=== PATIENT | female | born 1950 | race Caucasian/White ===

== ENCOUNTER → 2017-03-11 | Outpatient (CLI) | payer OTHER, MEDICARE ==
[~2017-03-11] MED LIST: ACETAMINOPHEN325 M1 PO; ACYCLOVIR 400400 MG PO; ACYCLOVIR 800800 MG PO; BACLOFEN 10MG T10 MG PO; COLACE100 MG PO; CORICIDIN HBP1 EACH PO; CYMBALTA20 MG PO; CYMBALTA30 MG PO; CYMBALTA60 MG PO; DOLOPHINE HCL5 MG PO; FAMVIR500 MG PO; HYDROCODON-ACE1 EAC1 PO; HYDROCODON-ACE1 EAC4 PO; HYDROCODON-ACE1 EAC5 PO; HYDROCODONE-AP1 EAC6 PO; IBUPROFEN 600600 M1 PO; LIDOCAINE 22 %/30 GM MM; LYRICA100 MG PO; METHADONE HCL5 MG PO; NASAL DECONGESTA5 MG PO; NORCO 10-325 T1 EACH PO; NORCO 5-325 TA1 EACH PO; NUCYNTA ER100 MG PO; NUCYNTA ER200 MG PO; NUCYNTA ER250 MG PO; NUCYNTA100 MG PO; OXYCODONE HCL E20 MG PO; OXYCODONE HCL5 M1 PO; OXYCONTIN10 M1 PO; OXYCONTIN10 MG PO; OXYCONTIN20 M1 PO; PERCOCET 7.5-31 EAC1 PO; PERCOCET 7.5-31 EACH PO; REMERON15 MG PO; REMERON30 MG PO; ROXICODONE5 M2 PO; SENNA-LAX8.6 MG PO; SLEEP AID OTC PO; TEGRETOL XR200 MG PO; TEGRETOL XR400 MG PO; VITAMIN C PO; VITAMIN D32000 UNIT PO; XTAMPZA ER18 MG PO; [UNRECOGNIZED DRUG - OTHER]; [UNRECOGNIZED DRUG - OTHER] PO
--- NOTE | 2017-03-13 08:15 | PAINCON ---
[facility] [address] [place] [address] PAIN MANAGEMENT CONSULTATION Name: ANJEL SANTANA Room: [facility] Cathleen#: [id number] Admission: 03/11/17 Attend Phys: John Toure Discharge: Date of : 48 Report #: [id number] THIS REPORT FOR: //name// CC: Rolly Gil The patient is a 66-year-old female, being treated for left hemifacial pain requiring high risk complex medication management, neuropathic pain component. Last seen in pain clinic 01/14/2017. Continued on baseline medication. We had tried rotating a long-acting opiate. She has been on OxyContin for some time. Insurance stopped paying for this. We tried Xtampza 18 mg at bedtime, this caused some untoward sedation. We rotated oxycodone 5 mg 1 to 2 at bedtime, with hydrocodone 5/325 3-4 times a day for breakthrough pain. The patient returns to pain clinic today. She is a little tearful. Her 13-year-old dog (Dilcia) before [place]. It has been a strong emotional support for her. Fortunately, her stepson from [facility] did come in during the holidays. She apparently has not seen him for 20 years and reconnecting with him did help buoy her spirits. We had weaned off Cymbalta. It seems she was doing well on this, taking 1-2 oxycodone at bedtime. We elected to rotate to 7.5 mg products. Continue hydrocodone 5/325 up to 4 times a day for breakthrough pain. PHYSICAL EXAMINATION: The patient notes today her subjective VAS score is 4/10 Physical exam is unchanged, 5 feet 5 inches, 104 pounds female, BMI is diminished at 7.9 kilograms per meter squared. She continues to use tobacco products, was counseled regarding same, concern for osteoporosis. Blood pressure 109/70, pulse 86, respirations 16. Alert and oriented to person, place and time, judged to be a reasonable historian. Does have some hyperpathia, allodynia about the left side of face. Cold weather seems to exacerbate her symptoms, and again, it is quite cold in [place] with single digit weather today. We reviewed the fact that opiate medications are being used to provide analgesia adequate to support activities of daily living, not attempting to achieve a specific pain score on the 0-10 Visual Analog Scale. The current opiate medications are providing sufficient analgesia to allow the patient to participate in activities of daily living. The patient is not exhibiting any aberrant behavior suggestive of drug diversion. The patient is not having any adverse reactions to medications. The patient is not suffering from daytime somnolence or mental acuity changes. The patient is managing opiate-induced constipation with appropriate phfz-nic-kavudrn agents and dietary considerations. The patient was counseled on concern for caution with operating a motor vehicle while using opiate medications. A physical exam was performed and the patient's functional status was evaluated. All patients with back pain were advised against the bed rest greater than [address] [place] [address] [place] [address] PAIN MANAGEMENT CONSULTATION Name: ANJEL SANTANA Room: [facility]#: [id number] Admission: 03/11/17 Attend Phys: John Toure Discharge: Date of : 48 Report #: [id number] days and were advised to return to normal activities. Pain score assessment was noted and the treatment plan was reviewed with the patient. All current medications, both prescribed and OTC were reviewed and reconciled on the electronic medical record. Tobacco screening was accomplished and smoking cessation was advised when indicated. BMI was noted and diet/exercise modification was recommended for all patients following outside normal parameters. I reviewed with the patient today their responsibilities to safeguard prescription medications, reviewed their responsibility to utilize medications only as prescribed by the physician. They are to seek and receive pain medications only from 1 physician group ( [facility]). They are to use 1 pharmacy and keep the clinic informed if they change pharmacies. Their responsibilities include making followup visits in a timely fashion and to avoid abrupt discontinuation of medication usage. Their responsibilities further include bringing their medications (bottles from the pharmacy with residual pills) to the visit for possible confirmation of pill counts and the patient understands it is their responsibility to submit to random drug screens to ensure both that the medications prescribed are present, and that no other controlled substances are present. All prescriptions provided today were generated electronically. ASSESSMENT: Symptomatic neuropathic pain requiring complex medication management, left hemifacial pain. RECOMMENDATIONS: 1. Buccal drug swab today. No aberrant behavior suggestive of drug diversion, simply complying with opiate consent to treat contract. 2. Renew current medication including hydrocodone 5/325 q.i.d. for pain, tramadol 50 mg p.r.n. We will trial rotating to Percocet 7.5/325 single tablet at bedtime, taken the liberty of writing for 2 months of current medication. Follow up at that time, earlier if needed. <ELECTRONICALLY SIGNED> By: Rolly Tellez DO 03/13/17 0815 [id number] Tellez DO /nt
== END ==
LOC: M.PC 01-21 11:30
DX: M79.2 Neuralgia and neuritis, unspecified (principal); Z79.899 Other long term (current) drug therapy

== ENCOUNTER → 2017-04-29 | Outpatient (CLI) | payer OTHER, MEDICARE ==
--- NOTE | 2017-05-04 07:49 | PAINCON ---
[facility] [address] [place] [address] PAIN MANAGEMENT CONSULTATION Name: ANJEL SANTANA [facility] [id number] Admission: 04/29/17 Attend Phys: John Toure Discharge: Date of : 48 Report #: [id number] THIS REPORT FOR: //name// CC: Rolly Gil DATE OF SERVICE: 04/29/2017 HISTORY OF PRESENT ILLNESS: The patient is a pleasant 67-year-old female being treated for neuropathic pain, left hemifacial pain, requiring complex medication management. Last seen in the pain clinic on 03/11/2017. The patient had some stress; her dog, Helen, had . She was enjoying spending time with her stepson. She is looking forward to a vacation to [facility] to visit with her son, though he has moved back to [place] as apparently he and his were unable to get visas to come to [place]. She returns to pain clinic today noting that she is planning on going to [place] with her sister in the time that she had taken off to go visit her son in [facility]. She states the current medication is helpful. She had better relief using Xtampza at bedtime. Due to cost concerns, we had rotated to oxycodone 5 mg 1.5-2 at bedtime. Hydrocodone 5/325 up to 4 a day. She returns to pain clinic today noting pain is a 4 on a VAS. To her credit, she has actively pursued biofeedback mindful meditation and stress reduction with relaxation techniques. She still notes pain is a 4 on a VAS. She would like to wait another couple of months before we consider going back to [facility]. She is trying to give the biopsychosocial remedies. We had suggested 4 months ago a good 6-month trial. We reviewed the fact that opiate medications are being used to provide analgesia adequate to support activities of daily living, not attempting to achieve a specific pain score on the 0-10 Visual Analog Scale. The current opiate medications are providing sufficient analgesia to allow the patient to participate in activities of daily living. The patient is not exhibiting any aberrant behavior suggestive of drug diversion. The patient is not having any adverse reactions to medications. The patient is not suffering from daytime somnolence or mental acuity changes. The patient is managing opiate-induced constipation with appropriate ohad-pum-kjgdewk agents and dietary considerations. The patient was counseled on concern for caution with operating a motor vehicle while using opiate medications. A physical exam was performed and the patient's functional status was evaluated. All patients with back pain were advised against the bed rest greater than 4 days and were advised to return to normal activities. Pain score assessment was noted and the treatment plan was reviewed with the patient. All current medications, both prescribed and OTC [place] [address] PAIN MANAGEMENT CONSULTATION Name: ANJEL SANTANA [facility] [id number] Admission: 04/29/17 Attend Phys: John Toure Discharge: Date of : 48 Report #: [id number] electronic medical record. Tobacco screening was accomplished and smoking cessation was advised when indicated. BMI was noted and diet/exercise modification was recommended for all patients following outside normal parameters. I reviewed with the patient today their responsibilities to safeguard prescription medications, reviewed their responsibility to utilize medications only as prescribed by the physician. They are to seek and receive pain medications only from 1 physician group ( [facility]). They are to use 1 pharmacy and keep the clinic informed if they change pharmacies. Their responsibilities include making followup visits in a timely fashion and to avoid abrupt discontinuation of medication usage. Their responsibilities further include bringing their medications (bottles from the pharmacy with residual pills) to the visit for possible confirmation of pill counts and the patient understands it is their responsibility to submit to random drug screens to ensure both that the medications prescribed are present, and that no other controlled substances are present. All prescriptions provided today were generated electronically. Physical exam is otherwise unchanged, 67-year-old female, BMI is 18.1 kilograms per meter squared. She was cautioned about increasing caloric intake as able. She does use tobacco products, was counseled regarding same. Otherwise, cranial nerves 2-12 are grossly intact. Subjective paresthesia and hyperpathia, allodynia of the left side of face. Fortunately, no dramatic asymmetry is noted. Cervical range of motion is good. Gait is tandem. ASSESSMENT: Neuropathic pain, left hemifacial, requiring complex medication management. RECOMMENDATION: Continue current medication unchanged, hydrocodone 5/325 up to 4 a day and oxycodone 5 mg 1.5-2 tablets at bedtime. I have taken the liberty of writing for 2 months of current medication, release of first prescription early due to travel out of state. Follow up in 2 months for reevaluation. We may consider discontinuing the bedtime oxycodone and resuming Xtampza product that we had discussed in the past (Xtampza extended release 18 mg 1 at bedtime). Discharged in good and stable condition. <ELECTRONICALLY SIGNED> By: Rolly Tellez DO 05/04/17 0749 [id number] Center[facility] Tellez DO /nt
== END ==
LOC: M.PC 01:43
DX: M79.2 Neuralgia and neuritis, unspecified (principal); G50.9 Disorder of trigeminal nerve, unspecified; Z79.899 Other long term (current) drug therapy

== ENCOUNTER → 2017-06-17 | Outpatient (CLI) | payer OTHER, MEDICARE ==
--- NOTE | 2017-06-18 06:52 | PAINCON ---
[facility] [address] [place] [address] PAIN MANAGEMENT CONSULTATION Name: ANJEL SANTANA [id number] Admission: 06/17/17 Attend Phys: John Toure Discharge: Date of : 48 Report #: [id number] THIS REPORT FOR: //name// CC: Rolly Gil DATE OF SERVICE: 06/17/2017 The patient is a 67-year-old female, long treated in pain clinic for chronic neuropathic facial pain. She started out with left hemifacial neuralgia. She has had 3 gamma knife procedures. She has V-2 distribution here. Pain is spread interestingly contralateral, she has some hyperpathia and allodynia in V-3 distribution on the right encompassing the right naris, upper lip and mandible, though does not radiate as far back as the TMJ. We tried multiple medications over time. She had been stable on OxyContin 20 mg at bedtime with hydrocodone 5/325 four a day. OxyContin became quite expensive. Insurance denied coverage. We rotated to short acting oxycodone at bedtime. This afforded transient relief, but ultimately, she feels she had had better control with long acting agent at bedtime. She has continued on Tegretol 400 mg b.i.d. and Remeron at bedtime as a soporific agent. Returns to pain clinic today, rating her pain a 5-6 on VAS. She has missed 11 days of work due to influenza and comorbid renal infection. She has completed course of antibiotics and that seems to be improving though she notes the right-sided hemifacial pain seems to be getting a little worse. Chronic left side pain remains problematic. PHYSICAL EXAMINATION: Today is unchanged, 5-foot 5-inch, 109-pound female, BMI remains below ideal at 17.8 kilograms per meter squared. She continues to smoke, though somewhat weaning. She was counseled regarding protein supplementation and smoking cessation. Blood pressure 105/59, pulse 83, respirations 16. She is alert and oriented to person, place and time, judged to be a reasonable historian. Again, has reasonable facial symmetry, though does have tenderness about the right V-3 distribution and left V-2 distribution. No cervical adenopathy is appreciable. Upper extremity strength is preserved. She is alert and oriented to person, place, and time, judged to be a reasonable historian. Medication list was reconciled. We reviewed the fact that opiate medications are being used to provide analgesia adequate to support activities of daily living, not attempting to achieve a specific pain score on the 0-10 Visual [place] [address] PAIN MANAGEMENT CONSULTATION Name: ANJEL SANTANA [id number] Admission: 06/17/17 Attend Phys: John Toure Discharge: Date of : 48 Report #: [id number] medications are providing sufficient analgesia to allow the patient to participate in activities of daily living. The patient is not exhibiting any aberrant behavior suggestive of drug diversion. The patient is not having any adverse reactions to medications. The patient is not suffering from daytime somnolence or mental acuity changes. The patient is managing opiate-induced constipation with appropriate kynu-nbl-ihusnun agents and dietary considerations. The patient was counseled on concern for caution with operating a motor vehicle while using opiate medications. A physical exam was performed and the patient's functional status was evaluated. All patients with back pain were advised against the bed rest greater than 4 days and were advised to return to normal activities. Pain score assessment was noted and the treatment plan was reviewed with the patient. All current medications, both prescribed and OTC were reviewed and reconciled on the electronic medical record. Tobacco screening was accomplished and smoking cessation was advised when indicated. BMI was noted and diet/exercise modification was recommended for all patients following outside normal parameters. I reviewed with the patient today their responsibilities to safeguard prescription medications, reviewed their responsibility to utilize medications only as prescribed by the physician. They are to seek and receive pain medications only from 1 physician group ( [facility]). They are to use 1 pharmacy and keep the clinic informed if they change pharmacies. Their responsibilities include making followup visits in a timely fashion and to avoid abrupt discontinuation of medication usage. Their responsibilities further include bringing their medications (bottles from the pharmacy with residual pills) to the visit for possible confirmation of pill counts and the patient understands it is their responsibility to submit to random drug screens to ensure both that the medications prescribed are present, and that no other controlled substances are present. All prescriptions provided today were generated electronically. ASSESSMENT: Chronic neuropathic pain status post 3 gamma knife procedures for left trigeminal neuralgia and a component of right V-3 distribution neuropathic pain. RECOMMENDATION: Continue carbamazepine (Tegretol) 400 mg b.i.d. Continue hydrocodone 5/325 up to 4 a day. We will revert back from a short acting oxycodone at bedtime to Xtampza extended release 18 mg at bedtime. I have taken the liberty of writing for 3 months of current medication. The patient was discharged in good and stable condition. We did review with the [facility] her prescriptions from 2018. They appear appropriate. Reviewing the chart, it appears last random drug screen 05/28/2016 was positive for prescribed medications. It looks like it has been slightly greater than 1 [facility] [address] [place] [address] PAIN MANAGEMENT CONSULTATION Name: ANJEL SANTANA Room: [facility] Cathleen#: [id number] Admission: 06/17/17 Attend Phys: John Toure Discharge: Date of : 48 Report #: [id number] year since last drug screen. We will note in the chart to get a random drug screen at next visit. Discharged in good and stable condition. <ELECTRONICALLY SIGNED> By: Rolly Telelz DO 06/18/17 0652 [id number] Tellez DO /nt
== END ==
LOC: M.PC 02:45
DX: M79.2 Neuralgia and neuritis, unspecified (principal); G89.29 Other chronic pain